=== PATIENT | female | born 1945 | race Caucasian/White ===

== ENCOUNTER 2022-02-22 14:47 | Inpatient (IN) | payer OTHER ==
[~2022-02-22] VITALS: Ht 154.9 cm; Wt 95.6 kg
[2022-02-22 16:12] LABS: Albumin 3.4 g/dL (3.4-5.0); Calcium 8.8 mg/dL (8.5-10.1); Potassium 3.4 mmol/L (3.5-5.1)
[2022-02-22 16:16] LABS: BUN/Creatinine Ratio 40.3; Bilirubin, Total 0.6 mg/dL (0.2-1.0)
[2022-02-22] MEDS ORDERED: ENOXAPARIN SOD 100 MG/1 ML SYRINGE SC ONE (17:45)
[2022-02-22] MEDS ORDERED: ASPirin 325 MG TAB PO ONE (17:45)
[2022-02-22] MEDS ORDERED: POTASSIUM EFFERVESENT TAB 25 MEQ PO ONE (18:15)
[2022-02-22 18:37] LABS: Basophils # (auto) 0.1 10 ^3/uL (0-0.2); Basophils % (auto) 0.7 % (0.0-2.0); Eosinophils # (auto) 0.1 10 ^3/uL (0-0.8); Eosinophils % (auto) 1.4 % (0.0-7.0); Hematocrit 43.1 % (36.0-46.0); Hemoglobin 13.6 g/dL (12.2-16.2); Lymphocytes # (auto) 2.3 10 ^3/uL (0.4-5.4); Lymphocytes % (auto) 21.6 % (10.0-50.0); Mean Corpuscular Hemoglobin 27.3 pg (28.0-32.0); Mean Corpuscular Hgb Conc. 31.5 g/dL (32.0-36.0); Mean Corpuscular Volume 86.5 fL (80.0-100.0); Monocytes # (auto) 1.1 10 ^3/uL (0-1.3); Monocytes % (auto) 10.3 % (0.0-12.0); Neutrophils # (auto) 6.9 10 ^3/uL (1.6-8.6); Red Blood Cells 4.99 10^6/uL (4.0-5.20); Red Cell Distribution Width 14.8 % (11.8-14.3); White Blood Cell 10.5 10^3/uL (4.4-10.8)
[2022-02-22] MEDS ORDERED: NITROGLYCERIN 0.4 MG SL TAB SL PRN (19:00)
[2022-02-22] MEDS ORDERED: PANTOPRAZOLE 40 MG/10 ML VIAL INJ IV ONE (19:00)
[2022-02-22] MEDS: SODIUM CHLORIDE 0.9% 1,000 ML IV SCH (19:00)
[2022-02-22] MEDS ORDERED: MORPHINE SULFATE INJ 2 MG/ml SYRG IV PRN (19:00)
[2022-02-22] MEDS ORDERED: MONT-8 PO (19:09)
[2022-02-22] MEDS ORDERED: SERT-160 PO (19:09)
[2022-02-22] MEDS ORDERED: ISOS1TAB28 PO (19:09)
[2022-02-22] MEDS ORDERED: ALBUTEROL SULF 2.5 MG/0.5ML(0.5%) NEB SOLN NEB PRN (19:15)
[2022-02-22 19:44] VITALS: BP 128/65
[2022-02-22 20:12] LABS: Cholesterol 160 mg/dL (< 200); Triglycerides 107 mg/dL (< 150)
[2022-02-22 20:15] LABS: HDL Cholesterol 57 mg/dL (40-59); LDL Cholesterol 93 mg/dL (< 100)
[2022-02-23] MEDS: ACETAMINOPHEN 325 MG TAB PO PRN ×2 (04:22→22:02)
[2022-02-23 06:00] LABS: Eosinophils # (auto) 0.2 10 ^3/uL (0-0.8); Hemoglobin 11.2 g/dL (12.2-16.2); Lymphocytes # (auto) 1.8 10 ^3/uL (0.4-5.4); Mean Corpuscular Hgb Conc. 31.9 g/dL (32.0-36.0); Monocytes # (auto) 0.7 10 ^3/uL (0-1.3); Neutrophils # (auto) 3.3 10 ^3/uL (1.6-8.6); Nucleated Red Blood Cells % 0.1 %; Red Cell Distribution Width 14.6 % (11.8-14.3); White Blood Cell 6.1 10^3/uL (4.4-10.8)
[2022-02-23 06:01] LABS: Basophils # (auto) 0.1 10 ^3/uL (0-0.2); Eosinophils % (auto) 3.8 % (0.0-7.0); Hematocrit 35.1 % (36.0-46.0); Lymphocytes % (auto) 29.4 % (10.0-50.0); Mean Corpuscular Hemoglobin 26.9 pg (28.0-32.0); Mean Corpuscular Volume 84.3 fL (80.0-100.0); Neutrophils % (auto) 53.8 % (37.0-80.0); Red Blood Cells 4.16 10^6/uL (4.0-5.20)
[2022-02-23 06:16] LABS: BUN/Creatinine Ratio 35.7; Calcium 8.7 mg/dL (8.5-10.1); Potassium 3.9 mmol/L (3.5-5.1)
[2022-02-23 06:24] LABS: Bilirubin, Total 0.5 mg/dL (0.2-1.0); Total Protein 5.7 g/dL (6.4-8.2)
[2022-02-23] MEDS: ENOXAPARIN SOD 100 MG/1 ML SYRINGE SC SCH ×2 (06:24→18:32)
[2022-02-23] MEDS: PANTOPRAZOLE 40 MG/10 ML VIAL INJ IV SCH (09:51)
[2022-02-23] MEDS: ASPirin 81 mg TAB PO SCH (09:51)
[2022-02-23] MEDS: SODIUM CHLORIDE 0.9% 1,000 ML IV SCH (12:58)
[2022-02-23 21:54] VITALS: BP 122/60
[2022-02-23 22:00] VITALS: BP 122/60
[2022-02-23] MEDS ORDERED: SUCR1SUS16 PO (23:08)
[2022-02-23] MEDS ORDERED: [UNRECOGNIZED DRUG - CODE] PO (23:08)
[2022-02-24] MEDS: SODIUM CHLORIDE 0.9% 1,000 ML IV SCH (03:58)
[2022-02-24 05:00] VITALS: BP 111/56
[2022-02-24] MEDS: ENOXAPARIN SOD 100 MG/1 ML SYRINGE SC SCH (05:21)
[2022-02-24 09:00] VITALS: BP 119/64
[2022-02-24] MEDS: PANTOPRAZOLE 40 MG/10 ML VIAL INJ IV SCH (10:00)
[2022-02-24] MEDS: ASPirin 81 mg TAB PO SCH (10:00)
[2022-02-24 13:00] VITALS: BP 137/67
== END 2022-02-24 14:41 | disposition home or self-care (01) | DRG 310 ==
LOC: EDSEX 14:47 → ER 14:47 → EDBD 14:47 → TELE 18:59 → TELE-CENTR 02-23 21:40
PROVIDERS: ADMIT Nurse Practitioner Family; ATTEND Internal Medicine
DX: I47.1 Supraventricular tachycardia (principal); I20.9 Angina pectoris, unspecified; E66.01 Morbid (severe) obesity due to excess calories; J45.909 Unspecified asthma, uncomplicated; G47.419 Narcolepsy without cataplexy; Z20.822 Contact with and (suspected) exposure to COVID-19; E87.6 Hypokalemia; Z90.710 Acquired absence of both cervix and uterus; Z98.84 Bariatric surgery status; Z68.39 Body mass index [BMI] 39.0-39.9, adult; Z90.49 Acquired absence of other specified parts of digestive tract
CPT/HCPCS: 36415; 71045; 80053; 80061; 83036; 83735; 84443; 84484; 85025; 85379; 87426; 93005; 93306; 96372; 99291; C9113; G0378